=== PATIENT | female | born 1990 | race African-American/Black ===

== ENCOUNTER 2019-02-07 12:44 | Emergency (ER) | payer MEDICAID ==
[~2019-02-07] VITALS: Ht 162.6 cm; Wt 73.0 kg
[2019-02-07] MEDS ORDERED: ONDANSETRON HCL 4MG/2ML INJ IV STA (16:08)
[2019-02-07] MEDS ORDERED: SODIUM CHLORIDE 0.9% 1,000 ML IV ONE (16:08)
[2019-02-07] MEDS ORDERED: FAMOTIDINE 20MG/2ML VIAL IV STA (16:08)
[2019-02-07 16:29] LABS: BASOPHILS % 0.1 % (0.0-2.0); HEMATOCRIT. 36.7 % (36.0-48.0); HEMOGLOBIN. 12.4 g/dL (12.0-16.0); LYMPHOCYTES % 10.6 % (20.0-50.0); MEAN CORPUSCULAR HEMOGLOBIN 28.1 pg (28.0-32.0); MEAN CORPUSCULAR VOLUME 83.3 fL (81.0-99.0); MEAN PLATELET VOLUME 8.6 fl (7.4-10.4); MONOCYTES % 3.4 % (2.0-8.0); NEUTROPHILS % 85.9 % (40.0-76.0); PLATELET 285 x1000/uL (130-400); RED BLOOD CELL COUNT 4.41 mill/uL (4.2-5.4); RED CELL DISTRIBUTION WIDTH 13.6 % (11.6-14.6)
[2019-02-07 16:33] LABS: CHLORIDE 109 mEq/L (98-107); PROTHROMBIN TIME 9.9 sec (9.6-11.0)
[2019-02-07 16:37] LABS: CLARITY URINE CLEAR (CLEAR); COLOR URINE YELLOW (YELLOW); KETONES URINE NEGATIVE (NEGATIVE); LEUKOCYTE ESTERASE URINE TRACE (NEGATIVE); NITRITE URINE POSITIVE (NEGATIVE); OCCULT BLOOD URINE 3+ (NEGATIVE); PH URINE 6.5 (4.5-8.0); PROTEIN URINE TRACE (NEGATIVE); SPECIFIC GRAVITY URINE 1.021 (1.005-1.030); UROBILINOGEN URINE 0.2 E.U./dL (0.2-1.0)
[2019-02-07 16:44] LABS: HCG SCREEN NEGATIVE
[2019-02-07] MEDS ORDERED: CEFTRIAXONE 1 G PREMIX 50 ML IV ONE (17:00)
[2019-02-07 18:20] VITALS: BP 116/72
== END 2019-02-07 18:26 | disposition home or self-care (01) ==
LOC: ER 12:44
DX: R19.7 Diarrhea, unspecified (principal); R11.2 Nausea with vomiting, unspecified; R10.9 Unspecified abdominal pain; F17.200 Nicotine dependence, unspecified, uncomplicated; F12.10 Cannabis abuse, uncomplicated
CPT/HCPCS: 36415; 80053; 81003; 81025; 83605; 83690; 84703; 85025; 85610; 96361; 96374; 96375; 99283; J2405; J3490; J7030; Z7610

== ENCOUNTER 2021-02-20 17:44 | Emergency (ER) | payer MEDICAID ==
[~2021-02-20] VITALS: Ht 165.1 cm; Wt 65.0 kg
[2021-02-20] MEDS ORDERED: METOCLOPRAMIDE HCL 10MG/2ML VIAL IV ONE ×2 (18:15→20:30)
[2021-02-20] MEDS ORDERED: SODIUM CHLORIDE 0.9% 1,000 ML IV ONE (18:15)
[2021-02-20 20:01] LABS: BASOPHILS % 0.4 % (0.0-2.0); EOSINOPHILS % 1.2 % (0.0-5.0); HEMATOCRIT. 36.3 % (36.0-48.0); HEMOGLOBIN. 12.4 g/dL (12.0-16.0); LYMPHOCYTES % 19.8 % (20.0-50.0); MEAN CORPUSCULAR HEMOGLOBIN 28.4 pg (28.0-32.0); MEAN PLATELET VOLUME 8.2 fl (7.4-10.4); MONOCYTES % 13.8 % (2.0-8.0); NEUTROPHILS % 64.8 % (40.0-76.0); PLATELET 291 x1000/uL (130-400); RED BLOOD CELL COUNT 4.38 mill/uL (4.2-5.4); RED CELL DISTRIBUTION WIDTH 13.9 % (11.6-14.6)
[2021-02-20 20:08] LABS: CHLORIDE 104 mEq/L (98-107)
[2021-02-20 20:32] LABS: B-HCG QUANTITATIVE 52108 mIU/mL (<3)
[2021-02-20 22:03] LABS: CLARITY URINE CLEAR (CLEAR); COLOR URINE YELLOW (YELLOW); PROTEIN URINE NEGATIVE (NEGATIVE); SPECIFIC GRAVITY URINE 1.018 (1.005-1.030)
[2021-02-20 22:04] LABS: KETONES URINE 4+ (NEGATIVE)
[2021-02-20 22:05] LABS: LEUKOCYTE ESTERASE URINE NEGATIVE (NEGATIVE); NITRITE URINE POSITIVE (NEGATIVE); OCCULT BLOOD URINE 1+ (NEGATIVE)
[2021-02-20 22:19] LABS: *BARBITURATES SCREEN URINE NEGATIVE (NEGATIVE); *COCAINE SCREEN URINE NEGATIVE (NEGATIVE)
[2021-02-20 22:20] LABS: *AMPHETAMINES SCREEN URINE NEGATIVE (NEGATIVE); OPIATES URINE SCREEN NEGATIVE (NEGATIVE); PHENCYCLIDINE URINE SCREEN NEGATIVE (NEGATIVE)
[2021-02-20 22:22] LABS: *BENZODIAZEPINES SCREEN URINE NEGATIVE (NEGATIVE); METHADONE URINE SCREEN NEGATIVE (NEGATIVE)
[2021-02-20 22:26] LABS: CANNABINOID URINE SCREEN PRESUMTIVE POSITIVE (NEGATIVE)
[2021-02-20] MEDS ORDERED: CEPH500C2 MT (22:38)
[2021-02-20] MEDS ORDERED: METO-293 MT (22:38)
[2021-02-20] MEDS ORDERED: CEPHALEXIN 250MG CAPSULE PO ONE (22:45)
[2021-02-20 23:39] VITALS: BP 112/84
== END 2021-02-20 23:41 | disposition home or self-care (01) ==
LOC: ER 17:44
DX: O23.41 Unspecified infection of urinary tract in pregnancy, first trimester (principal); O21.9 Vomiting of pregnancy, unspecified; O99.321 Drug use complicating pregnancy, first trimester; O34.11 Maternal care for benign tumor of corpus uteri, first trimester; F12.90 Cannabis use, unspecified, uncomplicated; Z87.891 Personal history of nicotine dependence; Z3A.01 Less than 8 weeks gestation of pregnancy
CPT/HCPCS: 36415; 76801; 76817; 80053; 80305; 81003; 81025; 84702; 85025; 86850; 86900; 86901; 93005; 96361; 96374; 96376; 99285; J2765; J7030

== ENCOUNTER 2022-07-04 11:33 | Emergency (ER) | payer MEDICAID ==
[~2022-07-04] VITALS: Ht 165.1 cm; Wt 101.0 kg
[~2022-07-04 11:33] MED LIST: CEPH500C2 MT; METO-293 MT
[2022-07-04 12:17] VITALS: BP 131/45
[2022-07-04] MEDS ORDERED: BO1 TP (14:13)
[2022-07-04] MEDS ORDERED: BACITRACIN ZINC OINT UDPKT TOP ONE (14:30)
== END 2022-07-04 14:41 | disposition home or self-care (01) ==
LOC: ER 13:51
DX: O90.0 Disruption of cesarean delivery wound (principal)
CPT/HCPCS: 99281; Z7610